=== PATIENT | female | born 1970 | race African-American/Black ===

== ENCOUNTER 2023-12-13 07:00 | Emergency (ER) | payer SELFPAY ==
[~2023-12-13] VITALS: Ht 165.1 cm; Wt 113.0 kg
[2023-12-13 07:05] VITALS: O2SAT 100
[2023-12-13] MEDS: IPRATROPIUM/ALBUTEROL 0.5-3(2.5)MG/3ML NEB HHN ONE (07:30)
[2023-12-13] MEDS ORDERED: METHYLPREDNISOLONE SOD SUCC 125MG/2ML (ACT-O-VIAL) IV NR (08:00)
[2023-12-13 08:10] LABS: BASOPHILS % 0.7 % (0.0-2.0); HEMATOCRIT. 38.1 % (36.0-48.0); HEMOGLOBIN. 12.3 g/dL (12.0-16.0); LYMPHOCYTES % 21.1 % (20.0-50.0); MEAN CORPUSCULAR HGB CONC 32.3 g/dL (31.0-37.0); MEAN CORPUSCULAR VOLUME 92.8 fL (81.0-99.0); MEAN PLATELET VOLUME 7.8 fl (7.4-10.4); MONOCYTES % 6.4 % (2.0-8.0); NEUTROPHILS % 70.8 % (40.0-76.0); PLATELET 316 x1000/uL (130-400); RED BLOOD CELL COUNT 4.11 mill/uL (4.2-5.4); RED CELL DISTRIBUTION WIDTH 14.6 % (11.6-14.6); WHITE BLOOD COUNT 5.9 x1000/uL (4.5-11.0)
[2023-12-13 08:15] VITALS: PULSE 96; RESP 20
[2023-12-13 08:25] LABS: ALANINE AMINOTRANSFERASE 19 IU/L (10-49); ALBUMIN 4.6 g/dL (3.2-4.8); ASPARTATE AMINOTRANSFERASE 22 IU/L (<34); BILIRUBIN TOTAL 0.2 mg/dL (0.1-1.0); CALCIUM 9.1 mg/dL (8.7-10.4); CARBON DIOXIDE 26 mEq/L (21-32); CHLORIDE 106 mEq/L (98-107); CREATININE 0.7 mg/dL (0.6-1.0); GLUCOSE 118 mg/dL (70-105); POTASSIUM 3.6 mEq/L (3.5-5.1); PROTEIN TOTAL 7.6 g/dL (6.0-8.3); SODIUM 138 mEq/L (136-145); UREA NITROGEN BLOOD 9 mg/dL (9-23)
[2023-12-13] MEDS: IPRATROPIUM BROMIDE (0.02%) 0.5MG/2.5ML NEB HHN NR (08:56)
[2023-12-13] MEDS: PREDNISONE 20MG TABLET PO ONE (08:56)
[2023-12-13] MEDS: ALBUTEROL (0.083%) 2.5MG/3ML NEB HHN NR (08:57)
[2023-12-13 09:00] LABS: TROPONIN I HIGH SENSITIVITY < 4 ng/L (3.0-34)
[2023-12-13] MEDS ORDERED: FLUT1DIS3 INH (09:37)
[2023-12-13] MEDS ORDERED: BUDE6.9H INH (09:37)
[2023-12-13] MEDS ORDERED: P50 PO (09:37)
[2023-12-13] MEDS ORDERED: ALBU6.7H15 INH (09:37)
[2023-12-13] MEDS ORDERED: ALBU2.5V13 NEB (09:37)
[2023-12-13 09:50] VITALS: BP 129/78; PULSE 99; RESP 18; TEMP 97.7
== END 2023-12-13 09:52 | disposition home or self-care (01) ==
LOC: ER 07:00
DX: J44.1 Chronic obstructive pulmonary disease with (acute) exacerbation (principal); I10 Essential (primary) hypertension; F41.9 Anxiety disorder, unspecified; F32.A Depression, unspecified; F17.200 Nicotine dependence, unspecified, uncomplicated; Z98.890 Other specified postprocedural states
CPT/HCPCS: 80053; 83605; 85025; 85379; 84484; 36415; 84145; 71045; 94640; 93005; 99285; J7512; Z7610 ×7